=== PATIENT | male | born 1985 | race Caucasian/White ===

== ENCOUNTER 2016-12-20 11:54 | Emergency (ER) | payer BC ==
[~2016-12-20] VITALS: Ht 175.3 cm; Wt 96.0 kg
[2016-12-20 12:07] VITALS: TEMP 37; Ht 175.3 cm; Wt 96.0 kg
[2016-12-20] MEDS ORDERED: PROPARACAINE HCL 0.5% OP SOLN 15 ML BTL ONE (12:36)
[2016-12-20] MEDS ORDERED: PROPARACAINE HCL 0.5% OP SOLN 15 ML BTL OP STA (12:38)
--- NOTE | 2016-12-20 12:41 | EMERGENCY ROOM VISIT NOTE ---
ED Visit Note First contact with patient: 12:29 CHIEF COMPLAINT: Eye pain HISTORY OF PRESENT ILLNESS: This 31-year-old male patient presents to the emergency department ambulatory complaining of pain in the left eye after getting something in his eye 2 days ago. He states that he was hanging sheet rock and using a saw. He denies grinding metal. He denies welding. There has been a constant moderate pain and irritation, redness and tearing in the eye. There is a mild blurring of vision at times and light bothers the eye. The vision has not been decreased over all. The patient does not wear contacts. The patient rates the pain as irritating and 8/10. The patient has been seen at [facility] and referred to the emergency department for further evaluation.. The patient has not had previous injuries to this eye. REVIEW OF SYSTEMS: A 6 system review of systems was completed with positives and pertinent negatives listed in the HPI. ALLERGIES: aztreonam, cefaclor, metronidazole, vancomycin MEDICATIONS: Patient denies PMH: Patient denies SOCIAL HISTORY: The patient lives locally. He is employed. He is a smoker PHYSICAL EXAM: Vital Signs: Reviewed Nurse's notes, vital signs stable. Visual acuity 20/20 in the right and 20/30 in the left. GENERAL: This is a 31-year- old male, in no acute distress, but who is uncomfortable from the eye problem. Well-developed well-nourished. EYES: The pupils are equal round and reactive to light and accommodation. EOMs are full and without tenderness. There is discharge of clear tears from the left eye which is injected. There is no foreign body visible under the eyelid even after lid eversion. Funduscopic exam reveals no hemorrhages, papilledema, or other abnormalities. No foreign body was seen embedded in the cornea under slit lamp exam. The cornea was clear and no hyphema was seen. Fluorescein uptake was observed with ultraviolet light and reveals a corneal rust ring at approximately 7:00. There is no foreign body visible. EMERGENCY DEPARTMENT COURSE: I examined the patient. Alcaine 2 drops were placed in the patient's right eye. A slit lamp exam was performed as above. He was already given Ciloxan drops from urgent care. The patient does have a corneal rust ring. There is no foreign body present at this time. I believe that this is fairly deep and has been there for several days. I did offer to attempt to remove the rust ring with an Sarah brush but advised the patient that if it is deep he will need to see an able seaman anyway. He elected to follow up with ophthalmology. He is from the [facility]. He will be given the information for the on-call able seaman but should be seen tomorrow. He should return with any worsening symptoms. The patient was discharged home in good condition. Current/Historical Medications No Active Prescriptions or Reported Meds Allergies Coded Allergies: Aztreonam (Unverified Allergy, Severe, BAD RASH, 12/20/16) Metronidazole (Unverified Allergy, Severe, BAD RASH, 12/20/16) Vancomycin (Unverified Allergy, Severe, BAD RASH, 12/20/16) Cefaclor (Unverified Allergy, Intermediate, RASH, 12/20/16) Vital Signs Date Time Temp Pulse Resp B/P Pulse Ox O2 Delivery O2 Flow Rate FiO2 12/20/16 13:25 77 18 125/77 98 12/20/16 12:07 37.0 51 18 149/81 99 Room Air Departure Information Impression Primary Impression: Corneal rust ring Dispostion Home / Self-Care Condition GOOD Prescriptions No Active Prescriptions or Reported Meds Referrals No Doctor, Assigned (PCP) Kenroy Lcehuga M.D. Patient Instructions ED Foreign Body Cornea W Rust Ring, My [facility] Additional Instructions Use the Cipro drops 2 drops every 2 hours while awake Follow-up with ophthalmology tomorrow for further evaluation, management and removal of the rust ring Return to the emergency Department with any decreased, loss of vision, fevers or generalized worsening symptoms Problem Qualifiers Primary Impression: Corneal rust ring Laterality: left Qualified Codes: H18.892 - Other specified disorders of cornea, left eye
[2016-12-20 13:25] VITALS: BP 125/77; PULSE 77; O2SAT 98
== END 2016-12-20 13:22 | disposition home or self-care (01) ==
LOC: C.EDB 11:55 → C.EDD 13:22
DX: H18.892 Other specified disorders of cornea, left eye (principal); F17.210 Nicotine dependence, cigarettes, uncomplicated